=== PATIENT | male | born 1990 | race African-American/Black ===

== ENCOUNTER 2016-12-09 20:18 | Emergency (ER) | payer OTHER ==
[~2016-12-09] VITALS: Ht 172.7 cm; Wt 90.7 kg
[2016-12-09] MEDS ORDERED: IBUPROFEN 800800 M1 PO (22:38)
[2016-12-09 22:39] VITALS: BP 130/89
== END 2016-12-09 22:40 | disposition home or self-care (01) ==
LOC: ER 20:18
DX: M24.411 Recurrent dislocation, right shoulder (principal); F17.210 Nicotine dependence, cigarettes, uncomplicated